=== PATIENT | female | born 1965 | race Caucasian/White ===

== ENCOUNTER 2017-02-16 20:33 | Observation (INO) | payer MEDICARE, BC ==
[~2017-02-16] VITALS: Ht 162.6 cm; Wt 69.4 kg
[2017-02-16 21:05] LABS: BASOPHILS 0.2 % (0-2); EOSINOPHILS 0 % (0-7); HEMATOCRIT 36.1 % (36.0-48.0); HEMOGLOBIN 12.8 g/dL (12-16); IMMATURE GRANULOCYTES 0.3 % (0-5); LYMPHOCYTES 6.1 % (15-50); MCH 34.9 pg (26.0-34.0); MCHC 35.5 g/dL (31.0-37.0); MCV 98.4 fL (80.0-100.0); MEAN PLATELET VOLUME 11.6 fL (7.4-10.4); MONOCYTES 9.6 % (2-11); NEUTROPHILS 83.8 % (40-80); PLATELET COUNT 119 10x3/uL (130-400); RBC 3.67 10x6/uL (4.00-5.40); RDW 13.2 % (11.5-14.5); WBC 6.2 10x3/uL (4.8-10.8)
[2017-02-16 21:24] LABS: ALBUMIN 2.5 g/dL (3.4-5.0); ALKALINE PHOSPHATASE 454 U/L (46-116); ALT (SGPT) 32 U/L (10-68); CALC OSMOLALITY 249 mosm/kg (275-300); CALCIUM 7.8 mg/dL (8.5-10.1); CARBON DIOXIDE 39.8 mmol/L (21.0-32.0); CREATININE - SERUM 0.7 mg/dL (0.6-1.3); GLUCOSE 149 mg/dL (74-106); PRO BNP 326 pg/mL (0-125); PROTEIN - SERUM 6.8 g/dL (6.4-8.2); SODIUM 124 mmol/L (136-145); TROPONIN-I < 0.017 ng/mL (0.000-0.060); UREA NITROGEN 3 mg/dL (7-18); eGFR NON AFRICAN AMERICAN > 90 mL/min (90-120)
[2017-02-16 21:27] LABS: CHLORIDE - SERUM 83 mmol/L (98-107); POTASSIUM - SERUM 2.3 mmol/L (3.5-5.1)
[2017-02-16 22:33] LABS: INR 1.22 (0.85-1.17); PROTIME 15.3 SECONDS (11.6-15.0)
[2017-02-16 22:38] LABS: C-REACTIVE PROTEIN 1.4 mg/dL (0.0-0.9); MAGNESIUM - SERUM 1.6 mg/dL (1.8-2.4); T4 THYROXINE 12.3 ug/dL (4.7-13.3)
[2017-02-17 00:19] LABS: APPEARANCE HAZY (CLEAR); BILIRUBIN NEGATIVE (NEGATIVE); COLOR YELLOW (YELLOW); GLUCOSE NEGATIVE (NEGATIVE); KETONE NEGATIVE (NEGATIVE); LEUKOCYTE ESTERASE TRACE (NEGATIVE); NITRITE NEGATIVE (NEGATIVE); PROTEIN NEGATIVE (NEGATIVE); SPECIFIC GRAVITY 1.005 (1.005-1.020)
[2017-02-17 00:24] LABS: BACTERIA MODERATE /hpf (NONE SEEN); EPITHELIAL CELLS 0-5 /hpf (0-5); RED CELLS - URINE 0-5 /hpf (0-5); WHITE CELLS - URINE 0-5 /hpf (0-5)
[2017-02-17 02:28] VITALS: BP 114/64; BMI 25.4
[2017-02-17] MEDS ORDERED: HCTZ25 MG PO (02:39)
[2017-02-17] MEDS ORDERED: K-DUR20 MEQ PO (02:39)
[2017-02-17] MEDS ORDERED: MS CONTIN60 MG PO (02:39)
--- NOTE | 2017-02-17 03:53 | NUR ---
PT RECEIVED VIA WHEELCHAIR @ 02:00 AWAKE, ALERT, ORIENTED, SPOUSE PRESENT. PT IS IN NO ACUTE DISTRESS, DENIES ANY NEEDS. 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 PT DENIES NAUSEA AT THIS TIME. WILL MONITOR CLOSELY. BED LOW, CALL LIGHT IN REACH, SIDE RAILS X 2, HOB 30 DEGREES.
[2017-02-17 05:36] VITALS: BP 102/64
--- NOTE | 2017-02-17 05:44 | NUR ---
PT AWAKE, ALERT, ORIENTED, DENIES ANY NEEDS AT THIS TIME. PT STATES SHE IS FEELING MINIMALLY BETTER. WILL FOLLOW EP AND CONTINUE TO MONITOR CLOSELY. PT TO CALL WITH ANY NEEDS. BED LOW, CALL LIGHT IN REACH, SIDE RAILS X 2, HOB 30 DEGREES.
[2017-02-17 06:18] LABS: CALC OSMOLALITY 263 mosm/kg (275-300); CALCIUM 7.5 mg/dL (8.5-10.1); CARBON DIOXIDE 38.3 mmol/L (21.0-32.0); CHLORIDE - SERUM 91 mmol/L (98-107); CREATININE - SERUM 0.6 mg/dL (0.6-1.3); GLUCOSE 116 mg/dL (74-106); SODIUM 133 mmol/L (136-145); UREA NITROGEN 3 mg/dL (7-18); eGFR NON AFRICAN AMERICAN > 90 mL/min (90-120)
[2017-02-17 06:22] LABS: POTASSIUM - SERUM 2.5 mmol/L (3.5-5.1)
[2017-02-17 08:00] VITALS: BP 109/61
[2017-02-17 12:03] VITALS: BP 99/63
[2017-02-17 16:00] VITALS: BP 98/64
--- NOTE | 2017-02-17 16:31 | NUR ---
ALERT AND ORIENTED X4. RESTING IN BED. LAB ORDERED FOR POTASSIUM REDRAW PER ELECTROLYTE PROTOCOL. 74bpm ON TELEMETRY. DENIES ANY NEEDS. PAIN MANAGEMENT CONTINUED ORDERED. CONTINUE PLAN OF CARE. BED LOCKED AND LOW. CALL LIGHT IN REACH. TWO SIDERAILS UP. REFUSED LOVENOX INJ AND SCDs.
[2017-02-17 17:36] LABS: CALC OSMOLALITY 272 mosm/kg (275-300); CALCIUM 7.9 mg/dL (8.5-10.1); CARBON DIOXIDE 37.8 mmol/L (21.0-32.0); CHLORIDE - SERUM 98 mmol/L (98-107); CREATININE - SERUM 0.7 mg/dL (0.6-1.3); GLUCOSE 117 mg/dL (74-106); SODIUM 138 mmol/L (136-145); UREA NITROGEN 2 mg/dL (7-18); eGFR NON AFRICAN AMERICAN > 90 mL/min (90-120)
[2017-02-17 17:38] LABS: POTASSIUM - SERUM 2.9 mmol/L (3.5-5.1)
--- NOTE | 2017-02-17 17:52 | NUR ---
LAB CALL CRITICAL POTASSIUM 2.9. INTITIATE ELECTROLYTE PROTOCOL FOR POTASSIUM REPLACEMENT.
--- NOTE | 2017-02-17 19:46 | NUR ---
PT AWAKE, ALERT, ORIENTED, DENIES ANY NEEDS. MOTHER AT BEDSIDE. CONTINUE TO MONITOR CLOSELY.
[2017-02-17 21:01] VITALS: BP 90/54
--- NOTE | 2017-02-17 23:29 | NUR ---
PT RESTING COMFORTABLY, DENIES ANY NEEDS. JUST HUNG THE 3RD BAG OF KCL IN THIS EP ORDER. CONTINUE TO MONITOR CLOSELY.
[2017-02-18 01:04] VITALS: BP 104/69
--- NOTE | 2017-02-18 02:17 | NUR ---
LAST BAG OF KCL INFUSING AT THIS TIME PER THIS ROUND OF EP. PT STATES SHE IS STARTING TO FEEL SOME BETTER, DENIES ANY NEEDS. CONTINUE TO MONITOR CLOSELY.
[2017-02-18 04:18] VITALS: BP 110/68
[2017-02-18 06:00] LABS: BASOPHILS 0.2 % (0-2); EOSINOPHILS 0.6 % (0-7); HEMATOCRIT 39.1 % (36.0-48.0); HEMOGLOBIN 13.1 g/dL (12-16); IMMATURE GRANULOCYTES 0.2 % (0-5); LYMPHOCYTES 19.8 % (15-50); MCH 34.4 pg (26.0-34.0); MCHC 33.5 g/dL (31.0-37.0); MEAN PLATELET VOLUME 11.6 fL (7.4-10.4); MONOCYTES 15.7 % (2-11); NEUTROPHILS 63.5 % (40-80); PLATELET COUNT 112 10x3/uL (130-400); RBC 3.81 10x6/uL (4.00-5.40); RDW 13.9 % (11.5-14.5); WBC 4.9 10x3/uL (4.8-10.8)
[2017-02-18 06:12] LABS: MCV 102.6 fL (80.0-100.0)
[2017-02-18 06:24] LABS: CALCIUM 7.9 mg/dL (8.5-10.1); CARBON DIOXIDE 34.1 mmol/L (21.0-32.0); CHLORIDE - SERUM 99 mmol/L (98-107); CREATININE - SERUM 0.7 mg/dL (0.6-1.3); GLUCOSE 80 mg/dL (74-106); PHOSPHOROUS 2.7 mg/dL (2.5-4.9); SODIUM 139 mmol/L (136-145); eGFR NON AFRICAN AMERICAN > 90 mL/min (90-120)
[2017-02-18 06:26] LABS: CALC OSMOLALITY 273 mosm/kg (275-300); MAGNESIUM - SERUM 2.2 mg/dL (1.8-2.4); POTASSIUM - SERUM 3.8 mmol/L (3.5-5.1); UREA NITROGEN 3 mg/dL (7-18)
[2017-02-18 08:00] VITALS: BP 111/72
--- NOTE | 2017-02-18 08:00 | NUR ---
AM ROUNDS - RECIEVED REPORT ON PT. PT ALERT AND ORIENTED, RR EVEN AND UNLABORED. PT DENIES NEEDS AT THIS TIME. BED IN LOWEST POSTION, CALL WRIGHT IN REACH, WILL CTM.
--- NOTE | 2017-02-18 08:18 | NUR ---
ALERT AND ORIENTED X4. KNOWS OWN LIMITS. CALLS FOR ASSISTANCE IF NEEDED. POTASSIUM 3.6. PLANS TO KEEP ONE MORE DAY TO MONITOR POTASSIUM. FOLLOW TROY SUAREZ ORIENTEE. TROY SUAREZ INITIATES PLAN OF CARE.
[2017-02-18 12:00] VITALS: BP 116/77
[2017-02-18 14:27] VITALS: Ht 162.6 cm; Wt 69.4 kg
[2017-02-18 15:37] LABS: CALC OSMOLALITY 272 mosm/kg (275-300); CALCIUM 7.8 mg/dL (8.5-10.1); CHLORIDE - SERUM 100 mmol/L (98-107); CREATININE - SERUM 0.6 mg/dL (0.6-1.3); GLUCOSE 106 mg/dL (74-106); SODIUM 138 mmol/L (136-145); eGFR NON AFRICAN AMERICAN > 90 mL/min (90-120)
[2017-02-18 15:44] LABS: UREA NITROGEN 4 mg/dL (7-18)
[2017-02-18 16:00] VITALS: BP 106/69
--- NOTE | 2017-02-18 17:06 | NUR ---
PT RESTING QUIETLY, DENIES NEEDS AT THIS TIME. FAMILY AT BEDSIDE, BED IN LOWEST POSTION, CALL WRIGHT IN REACH, WILL CTM. REQUESTED TO KNOW LAB VALUES, K+ NOW AT 4.0.
[2017-02-18 19:00] VITALS: BP 109/65
--- NOTE | 2017-02-18 21:14 | NUR ---
PT AWAKE, ALERT, ORIENTED, DENIES ANY NEEDS AT THIS TIME. MOTHER AT BEDSIDE. CONTINUE TO MONITOR CLOSELY.
[2017-02-19] VITALS: BP 113/66
--- NOTE | 2017-02-19 03:47 | NUR ---
PT IV SALINE LOCKED. PT IS NOT GETTING ANY POTASSIUM RIDERS AT THIS TIME. PT IS ASKING ABOUT REMOVING TELEMETRY, BUT I HAVE ASKED PT TO WAIT FOR LAB RESULTS BEFORE WE DO SO. PT HAS AGREED. CONTINUE TO MONITOR CLOSELY.
[2017-02-19 04:00] VITALS: BP 101/66
[2017-02-19 06:09] LABS: BASOPHILS 0.3 % (0-2); EOSINOPHILS 1.8 % (0-7); HEMATOCRIT 32.7 % (36.0-48.0); HEMOGLOBIN 10.9 g/dL (12-16); IMMATURE GRANULOCYTES 0.3 % (0-5); LYMPHOCYTES 23.5 % (15-50); MCH 34.2 pg (26.0-34.0); MCHC 33.3 g/dL (31.0-37.0); MCV 102.5 fL (80.0-100.0); MEAN PLATELET VOLUME 11.6 fL (7.4-10.4); MONOCYTES 16.3 % (2-11); NEUTROPHILS 57.8 % (40-80); PLATELET COUNT 93 10x3/uL (130-400); RBC 3.19 10x6/uL (4.00-5.40); RDW 13.8 % (11.5-14.5)
[2017-02-19 06:14] LABS: WBC 3.3 10x3/uL (4.8-10.8)
[2017-02-19 06:23] LABS: CALC OSMOLALITY 269 mosm/kg (275-300); CALCIUM 7.9 mg/dL (8.5-10.1); CARBON DIOXIDE 33.1 mmol/L (21.0-32.0); CHLORIDE - SERUM 102 mmol/L (98-107); CREATININE - SERUM 0.7 mg/dL (0.6-1.3); GLUCOSE 79 mg/dL (74-106); POTASSIUM - SERUM 3.9 mmol/L (3.5-5.1); SODIUM 137 mmol/L (136-145); UREA NITROGEN 3 mg/dL (7-18); eGFR NON AFRICAN AMERICAN > 90 mL/min (90-120)
[2017-02-19 07:40] LABS: PLATELET ESTIMATE DECREASED
[2017-02-19 08:00] VITALS: BP 114/69
--- NOTE | 2017-02-19 08:00 | NUR ---
INTRODUCED MYSELF TO PT PRIMARY RN FOR TODAYS SHIFT. SHIFT ASSESSMENT COMPLETED. PT STATES SHE IS GOING TO BE DISCHARGED TODAY AND FEELS GREAT AND IS READY. D/C PTS R.EXTERNAL JUGULAR PIV WITH CATH TIP FULLY INTACT. MORNING MEDICATIONS GIVEN AND PT SWALLOWED WITHOUT ANY DIFFICULTIES. PTS MOTHER IS AT BEDSIDE AND WILL BE TAKING HER HOME. WILL BEGIN DISCHARGE PAPERS AND CPOC.
[2017-02-19] MEDS ORDERED: ALDACTONE25 MG PO (09:34)
--- NOTE | 2017-02-19 09:42 | NUR ---
DISCHARGE TEACHING PROVIDED AND PAPERS SIGNED. PT VERBALIZED UNDERSTANDING AND DENIES ANY QUESTIONS OR CONCERNS. MOTHER AT BEDSIDE FOR TRANSPORTATION. GAVE HARD SCRIPT FOR NEW MED "ALDACTONE" AND TEACHING PROVIDED. NO FURTHER NEEDS. PT VOICED THANKS.
== END 2017-02-19 10:05 | disposition home or self-care (01) ==
LOC: D.ER 20:33 → D.M2 02-17 01:07 → OBSVTIME 02-17 01:08 → D.M2 02-19 10:05
PROVIDERS: Emergency Medicine; ADMIT Family Medicine
DX: E87.1 Hypo-osmolality and hyponatremia (principal); E87.6 Hypokalemia; K76.0 Fatty (change of) liver, not elsewhere classified; D50.9 Iron deficiency anemia, unspecified; E66.9 Obesity, unspecified; Z68.39 Body mass index [BMI] 39.0-39.9, adult; I10 Essential (primary) hypertension; M19.90 Unspecified osteoarthritis, unspecified site; I89.0 Lymphedema, not elsewhere classified; D69.6 Thrombocytopenia, unspecified